=== PATIENT | male | born 1985 | race Two or more races ===

== ENCOUNTER → 2018-09-26 | Day surgery (SDC) | payer OTHER ==
[~2018-09-26] MED LIST: Lactated Ringers 1,000 ML IV SCH; Propofol 200 MG/20 ML SDV IV ONE
--- NOTE | 2018-09-26 14:26 | OR ---
DATE OF OPERATION: 09/26/2018 PREOPERATIVE DIAGNOSIS: GASTROESOPHAGEAL REFLUX DISEASE WITH DYSPHAGIA. POSTOPERATIVE DIAGNOSIS: GASTROESOPHAGEAL REFLUX DISEASE WITH DYSPHAGIA. SURGEON: Mauricio Kidd MD PROCEDURE: EGD WITH BIOPSIES X3, SOLOMON. ANESTHESIA: ELEVATOR ERECTOR. COMPLICATIONS: None. SPECIMEN: 1. Duodenal bulb biopsy x1. 2. Antral biopsy x2. 3. SOLOMON. FINDINGS: 1. Full-length EGD. 2. Antral gastritis/duodenitis, [id number] without ulceration or erosion. 3. Spontaneous GERD without associated hiatal hernia, esophagitis, or stricturing. 4. Likely obstructive sleep apnea. RECOMMENDATIONS: The patient has been improving on proton pump therapy, would continue that for now, and patient needs discussion of risk factors for his reflux and gastritis. He did have significant signs of sleep apnea while under anesthesia and should have a sleep study. INDICATIONS: The patient has been having ongoing issues with heartburn and now dysphagia. Lissett Edwards sent him for diagnostic EGD. DESCRIPTION OF PROCEDURE: The patient was prepped and draped, placed in the left lateral decubitus position. A lubricated Olympus gastroscope inserted over a bit, advanced to the cricopharyngeus area, and with patient swallow, intubated in the esophagus. The esophageal lining was benign in its entire course. The Z- line was crisp at about 40 cm. No hernia was seen, but there was spontaneous reflux visualized without esophagitis, stricturing, ulceration, or Barrios's changes. The scope was advanced into the stomach, through the pylorus, and into the second portion of the duodenum. The second portion of the duodenum was unremarkable. The duodenal bulb had some mild inflammation consistent with duodenitis. Biopsy was obtained. The scope was brought back into the stomach and retroflexed. The patient was extremely hard to keep oxygenated and was gasping throughout most of this procedure. I did not get an excellent look at the upper fundus and cardia, but what I could see appeared unremarkable. I straightening the scope and the fundus appeared benign. The antrum had diffuse gastritis without ulceration or erosion. Two biopsies were taken along with a CLOtest. Air was suctioned from the stomach. The scope was brought back to get a better look at the Z-line and no gross abnormalities were seen. At this point, the patient was becoming difficult to keep sedated and we terminated the procedure at that point. The scope was withdrawn without complication. The patient was stable in the recovery room. AMBER /[id number]
== END ==
LOC: CC.SDS 10:22
PROVIDERS: ATTEND Family Medicine
DX: K29.50 Unspecified chronic gastritis without bleeding (principal); B96.81 Helicobacter pylori [H. pylori] as the cause of diseases classified elsewhere; K29.80 Duodenitis without bleeding; K21.9 Gastro-esophageal reflux disease without esophagitis; F17.210 Nicotine dependence, cigarettes, uncomplicated; M75.100 Unspecified rotator cuff tear or rupture of unspecified shoulder, not specified as traumatic; Z79.899 Other long term (current) drug therapy
CPT/HCPCS: 87081; J2704; J7120

== ENCOUNTER 2022-09-24 07:25 | Emergency (ER) | payer OTHER ==
[2022-09-24] MEDS ORDERED: Acetaminophen 500 MG Tab PO ONE (07:54)
[2022-09-24] MEDS ORDERED: Iopamidol 755 Mg/ML 100 ML Bottle IVPUSH ONE (07:54)
[2022-09-24] MEDS ORDERED: Diphtheria,Pertussis(Acell),Tetanus Vaccine 0.5 ML Syringe IM ONE (07:58)
[2022-09-24] MEDS ORDERED: Sodium Chloride 0.9% 1,000 ML IV ONE (08:04)
[2022-09-24] MEDS ORDERED: Lidocaine 1% 5 ML VIAL INJECT ONE (08:08)
[2022-09-24] MEDS ORDERED: Bacitracin Oint 28.35 GM Tube TOP ONE (08:58)
[2022-09-24] MEDS ORDERED: Bacitracin/Neomycin/Polymyxin B Oint 0.9 GM U/D Packet ONE (09:01)
== END 2022-09-24 09:10 | disposition home or self-care (01) ==
LOC: CC.ED 07:25
DX: S31.114A Laceration without foreign body of abdominal wall, left lower quadrant without penetration into peritoneal cavity, initial encounter (principal); Z20.822 Contact with and (suspected) exposure to COVID-19; Z23 Encounter for immunization; W26.0XXA Contact with knife, initial encounter
CPT/HCPCS: 12002; 36415; 74177; 80053; 85025; 86850; 86900; 86901; 90471; 90715; 99284; 99284-25; A9270-GY; J3490; J7030; Q9967; U0002

== ENCOUNTER 2024-03-04 16:31 | Emergency (ER) | payer OTHER | END 2024-03-04 16:32 | LOC: CC.ED 16:31 | DX: Z87.891 Personal history of nicotine dependence (principal); E11.9 Type 2 diabetes mellitus without complications; Z79.84 Long term (current) use of oral hypoglycemic drugs; Z79.899 Other long term (current) drug therapy; X58.XXXA Exposure to other specified factors, initial encounter; Y92.89 Other specified places as the place of occurrence of the external cause; Y99.0 Civilian activity done for income or pay | CPT/HCPCS: 73140-F1; 96374; 96375; 96376; 99284; 99285-25; J0690; J1170 ==